=== PATIENT | male | born 1975 | race Two or more races ===

== ENCOUNTER 2017-05-09 07:42 | Emergency (ER) | payer MEDICAID ==
[~2017-05-09] VITALS: Ht 157.5 cm; Wt 129.3 kg
[2017-05-09 08:00] VITALS: BP 153/93
== END 2017-05-09 09:43 | disposition home or self-care (01) ==
LOC: ER 07:42
DX: M77.12 Lateral epicondylitis, left elbow (principal)
CPT/HCPCS: 73080